=== PATIENT | male | born 2000 | race Caucasian/White ===

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

== ENCOUNTER 2019-04-26 08:53 | Emergency (ER) | payer OTHER ==
[~2019-04-26] VITALS: Ht 170.2 cm; Wt 77.3 kg
[2019-04-26 09:10] VITALS: BP 118/66; TEMP 98.3
[2019-04-26 09:47] LABS: BASO % 0.5 % (0.0-2.0); EOS # 0.2 (0.0-0.7); EOS % 2.6 % (0-4.0); GRAN # 6.4 (1.4-6.5); GRAN % 72.3 % (42.2-75.2); HEMATOCRIT 44.1 % (36.0-47.0); HEMOGLOBIN 15.3 g/dl (12.5-16.1); LYMPH # 1.6 (1.2-3.4); LYMPH % 17.6 % (20.0-51.0); MEAN CELL VOLUME 90 fl (80.0-95.0); MEAN CORPUSCULAR HEMOGLOBIN 31 pg (26.0-32.0); MEAN CORPUSCULAR HGB CONC 35 g/dl (33.0-37.0); MEAN PLATELET VOLUME 10.3 fl (7.4-10.4); MONO # 0.6 (0.1-0.6); MONO % 6.5 % (1.7-9.3); PLATELET COUNT 288 K/mm3 (130-400); REDCELL DISTRIBUTION WIDTH-CV 12.5 % (11.5-14.5)
[2019-04-26 09:55] LABS: ALANINE AMINOTRANSFERASE 23 U/L (21-72); ALBUMIN 4.9 gm/dL (3.5-5.0); ALKALINE PHOSPHATASE 74 U/L (50-136); ANION GAP 9 mmol/L (7-16); AST,SGOT 22 U/L (15-37); BILIRUBIN,TOTAL 0.6 mg/dL (0.0-1.0); BLOOD UREA NITROGEN 11 mg/dL (9-20); CALCIUM 9.6 mg/dL (8.4-10.2); CARBON DIOXIDE 28 mmol/L (22-30); CHLORIDE 103 mmol/L (98-107); GLUCOSE 116 mg/dL (74-106); LIPASE 51 U/L (23-300); SODIUM 140 mmol/L (137-145); TOTAL PROTEIN 8.8 gm/dL (6.4-8.2)
[2019-04-26 09:56] LABS: C-REACTIVE PROTEIN < 0.5 mg/dL (0.0-0.9)
[2019-04-26 10:14] LABS: COLLECTION METHOD CLEAN CATCH
[2019-04-26 10:21] LABS: PH 7 (5-8); SQUAMOUS EPITHELIAL None Seen /hpf; URINE APPEARANCE Clear; URINE BACTERIA None Seen /hpf; URINE BILIRUBIN Negative (NEGATIVE); URINE BLOOD Negative (NEGATIVE); URINE COLOR Yellow; URINE GLUCOSE Negative (NEGATIVE); URINE KETONE Negative (NEGATIVE); URINE LEUKOCYTE ESTERASE Negative (NEGATIVE); URINE NITRATE Negative (NEGATIVE); URINE PROTEIN(semi-quant) Negative (NEGATIVE); URINE RBC None Seen /hpf; URINE UROBILINOGEN Negative (NEGATIVE)
[2019-04-26 11:45] VITALS: PULSE 69
== END 2019-04-26 11:45 | disposition home or self-care (01) ==
LOC: COL.ER 08:53
PROVIDERS: Family Medicine
DX: R11.15 Cyclical vomiting syndrome unrelated to migraine (principal)
CPT/HCPCS: J2405; J7030

== ENCOUNTER 2019-04-29 08:16 | Emergency (ER) | payer OTHER ==
[~2019-04-29] VITALS: Ht 170.2 cm; Wt 77.3 kg
[2019-04-29] MEDS ORDERED: VENTOLIN0.09 MG IH (08:35)
[2019-04-29 09:54] VITALS: BP 115/71; PULSE 68; TEMP 98
[2019-04-29] MEDS ORDERED: ZOFRAN ODT4 MG PO (09:56)
[2019-04-29] MEDS ORDERED: PROTONIX 40MG T40 MG PO (09:56)
== END 2019-04-29 10:07 | disposition home or self-care (01) ==
LOC: COL.ER 08:16
DX: F12.288 Cannabis dependence with other cannabis-induced disorder (principal); K92.0 Hematemesis; F41.9 Anxiety disorder, unspecified; Z88.1 Allergy status to other antibiotic agents
CPT/HCPCS: C9113; J2060; J2405; J7030

== ENCOUNTER → 2019-08-03 | Outpatient (CLI) | payer OTHER ==
[~2019-08-03] MED LIST: PROTONIX 40MG T40 MG PO; VENTOLIN0.09 MG IH; ZOFRAN ODT4 MG PO
== END ==
LOC: COL.RAD 06:43
DX: R11.2 Nausea with vomiting, unspecified (principal)
CPT/HCPCS: A9537; J2805